=== PATIENT | male | born 1970 | race Caucasian/White ===

== ENCOUNTER 2025-05-25 08:45 | Outpatient (CLI) | payer BC | END 2025-05-25 08:46 | disposition home or self-care (01) | LOC: CSHSLEEP 08:45 | PROVIDERS: ATTEND Family Medicine | DX: G47.33 Obstructive sleep apnea (adult) (pediatric) (principal); R53.83 Other fatigue; R09.89 Other specified symptoms and signs involving the circulatory and respiratory systems; R06.83 Snoring | CPT/HCPCS: 95800 ==

== ENCOUNTER 2025-07-27 09:26 | Outpatient (CLI) | payer BC | END 2025-07-27 09:27 | disposition home or self-care (01) | LOC: CSHSLEEP 09:26 | PROVIDERS: ATTEND Family Medicine | DX: G47.33 Obstructive sleep apnea (adult) (pediatric) (principal); R53.83 Other fatigue; R09.89 Other specified symptoms and signs involving the circulatory and respiratory systems; R06.83 Snoring | CPT/HCPCS: 95811 ==